=== PATIENT | female | born 1960 ===

== ENCOUNTER 2016-10-24 12:36 | Inpatient (IN) | payer MEDICAID ==
[2016-10-24] MEDS ORDERED: Sodium Chloride 0.9% 1,000 ML IV ONE (13:46)
[2016-10-24] MEDS ORDERED: Sodium Chloride 0.9% 1,000 ML ONE (14:34)
[2016-10-24 14:43] LABS: BASO # 0.1 K/uL (0.0-0.2); BASO % 1.1 % (0.0-2.0); EOS # 0.3 K/uL (0.0-0.7); EOS % 2.6 % (0.0-4.0); HEMOGLOBIN 12.3 g/dL (11.0-16.0); LYMPH # 2.8 K/uL (1.0-4.3); LYMPH % 26.8 % (20.0-40.0); MEAN CELL VOLUME 88.3 fL (81.0-99.0); MEAN CORPUSCULAR HEMOGLOBIN 29.4 pg (27.0-31.0); MEAN CORPUSCULAR HGB CONC 33.4 g/dL (33.0-37.0); MONO # 0.6 K/uL (0.0-0.8); MONO % 6.2 % (0.0-10.0); NEUT # 6.6 K/uL (1.8-7.0); NEUT % 63.3 % (50.0-75.0); NRBC % 0.1 % (0.0-2.0); RBC 4.16 Mil/uL (3.80-5.20); RED CELL DISTRIBUTION WIDTH 13.6 % (11.5-14.5); WHITE BLOOD COUNT 10.5 K/uL (4.8-10.8)
[2016-10-24 14:51] LABS: ALBUMIN 3.6 g/dL (3.5-5.0)
[2016-10-24 14:53] LABS: AST/SGOT 34 U/L (14-36); GFR AFRICAN-AMERICAN > 60; GFR NON-AFRICAN AMERICAN > 60
[2016-10-24 14:54] LABS: ALT/SGPT 44 U/L (9-52); BLOOD UREA NITROGEN 15 mg/dL (7-17); CALCIUM 7.6 mg/dl (8.6-10.4)
--- NOTE | 2016-10-24 15:37 | C.PDOC ---
History Of Present Illness 55 y/o female presents to the ED for evaluation of "bump" to left arm. Patient states she had blood drawn out on 10/15/16 from the left antecubital area, and states when she took the bandage off, she noticed redness to the area. Pt states that she saw her PMD on 10/21/16, was given prescription of antibiotics. States she saw her PMD again today, who instructed her to report to an ED for further evaluation. Otherwise, denies any fever, change in sensation, or trauma. Time Seen by Provider: 10/24/16 12:59 Chief Complaint (Nursing): Abnormal Skin Integrity History Per: Patient History/Exam Limitations: no limitations Onset/Duration Of Symptoms: Days Current Symptoms Are (Timing): Still Present Location Of Injury: Left: Arm Quality Of Symptoms: denies: Itching, Swollen Recent travel outside of the [place]: No Additional History Per: Patient Past Medical History Reviewed: Historical Data, Nursing Documentation, Vital Signs Vital Signs: Last Vital Signs Temp 97.5 F L 10/24/16 17:00 Pulse 55 L 10/24/16 17:00 Resp 20 10/24/16 17:00 BP 132/68 10/24/16 17:00 Pulse Ox 96 10/24/16 18:40 - Medical History PMH: Hypercholesterolemia Surgical History: Cholecystectomy Family History: States: Unknown Family Hx - Social History Hx Alcohol Use: No Hx Substance Use: No - Immunization History Hx Tetanus Toxoid Vaccination: No Hx Influenza Vaccination: No Review Of Systems Except As Marked, All Systems Reviewed And Found Negative. Constitutional: Negative for: Fever, Chills Musculoskeletal: Negative for: Arm Pain Skin: Positive for: Other ("bump" to left arm) Neurological: Negative for: Weakness, Numbness Physical Exam - Physical Exam Appears: Non-toxic, No Acute Distress Skin: Warm, Dry, Other (20cm x 10cm area of open wound to left antecubital area with drainage and surrounding induration) Head: Atraumatic, Normacephalic Eye(s): bilateral: Normal Inspection Nose: Normal Oral Mucosa: Moist Neck: Normal ROM, Supple Cardiovascular: Rhythm Regular, No Murmur Respiratory: Normal Breath Sounds, No Rales, No Rhonchi, No Wheezing Extremity: Normal ROM, No Tenderness, Capillary Refill (< 2 sec.), No Deformity , No Swelling Pulses: Left Radial: Normal, Right Radial: Normal Neurological/Psych: Oriented x3, Normal Speech, Normal Motor, Normal Sensation ED Course And Treatment - Laboratory Results Result Diagrams: 10/24/16 14:38 10/24/16 14:38 O2 Sat by Pulse Oximetry: 96 (RA) Pulse Ox Interpretation: Normal Progress Note: Blood work ordered and reviewed. Patient was given Cleocin, and IV fluids. Case discussed with Dr. Peñaloza who requested hospital admission. Spoke with Dr. Carmen who agreed upon admission. 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 - Scribe Statement The provider has reviewed the documentation as recorded by the Scribe James Muller All medical record entries made by the Edwardibyanet were at my direction and personally dictated by me. I have reviewed the chart and agree that the record accurately reflects my personal performance of the history, physical exam, medical decision making, and the department course for this patient. I have also personally directed, reviewed, and agree with the discharge instructions and disposition.
[2016-10-24 16:36] VITALS: RESP 20
--- NOTE | 2016-10-24 18:40 | CP.PCM.CON ---
History of Present Illness - History of Present Illness History of Present Illness: SURGERY CONSULT NOTE FOR DR. CRAWFORD 55F with left arm AC cellulitis and wound. Patient reports associated pain and swelling to the same area. Symptoms began 6 days ago shortly after patient had blood drawn near that area. Surgery was consulted to evaluate the site. Patient notes redness was originally spread to the entire forearm but has gotten significantly better after the site was drained by her primary physician on Friday. Pt stated increased pain in the arm today and was told to come to hospital by PMD. Pt denies fever, chills, nausea, vomiting, or weakness in the affected arm. PMH: HLD, DM, varicose veins treated with sclerotherapy of the legs PSH: cholecystectomy; delivery x2 Social: Denies alcohol, tobacco, or illicit drug use Allergies: NKA Past Patient History - Past Social History Smoking Status: Never Smoked - CARDIAC Hx Hypercholesterolemia: Yes - ENDOCRINE/METABOLIC Hx Diabetes Mellitus Type 2: Yes - PSYCHIATRIC Hx Substance Use: No - SURGICAL HISTORY Hx Cholecystectomy: Yes - ANESTHESIA Hx Anesthesia: No Hx Anesthesia Reactions: No Meds Allergies/Adverse Reactions: Allergies Allergy/AdvReac Type Severity Reaction Status Date / Time No Known Allergies Allergy Verified 10/24/16 13:00 - Medications Medications: Current Medications Calcium/Vitamin D (Oyster Shell Calcium/Vitamin D 500 Mg-200 Iu) 1 tab PO BID [facility] Enoxaparin Sodium (Lovenox) 40 mg SC DAILY [facility] Famotidine (Pepcid) 20 mg PO DAILY [facility] Vancomycin/Sodium Chloride (Vancocin) 1 gm in 200 mls @ 133 mls/hr IVPB Q12H [facility] Stop: 10/29/16 19:01 Ceftriaxone Sodium 1 gm/ (Sodium Chloride) 100 mls @ 100 mls/hr IVPB Q24H [facility] Insulin Aspart (Novolog) 0 unit SC ACHS [facility] PRN Reason: Protocol Raloxifene HCl (Evista) 60 mg PO DAILY [facility] Rosuvastatin Calcium (Crestor) 10 mg PO HS [facility] Physical Exam - Constitutional Appears: Well, Non-toxic, No Acute Distress - Head Exam Head Exam: ATRAUMATIC - Eye Exam Eye Exam: EOMI, PERRL - ENT Exam ENT Exam: Mucous Membranes Moist - Respiratory Exam Respiratory Exam: Clear to Auscultation Bilateral, NORMAL BREATHING PATTERN - Cardiovascular Exam Cardiovascular Exam: REGULAR RHYTHM, +S1, +S2 - GI/Abdominal Exam GI & Abdominal Exam: Soft. absent: Guarding, Rebound, Rigid, Tenderness - Extremities Exam Extremities exam: Negative for: calf tenderness, pedal edema - Neurological Exam Neurological exam: Alert, Oriented x3 - Psychiatric Exam Psychiatric exam: Normal Affect, Normal Mood - Skin Skin Exam: Erythema Additional comments: Draining purulent lesion (2x2 cm) on the left AC fossa that is surrounded by erythema (7x7 cm) Results - Vital Signs Recent Vital Signs: Last Vital Signs Temp 97.5 F L 10/24/16 17:00 Pulse 55 L 10/24/16 17:00 Resp 20 10/24/16 17:00 BP 132/68 10/24/16 17:00 Pulse Ox 96 10/24/16 18:29 - Labs Result Diagrams: 10/24/16 14:38 10/24/16 14:38 Assessment & Plan - Assessment and Plan (Free Text) Assessment: 55F with left AC cellulitis and purulent wound Plan: Pt will receive IV antibiotics Area of erythema marked circumferentially Will continue to monitor progression of erythema and draining wound Further recs discuss with Dr. Fredrick Banks PGY-2
--- NOTE | 2016-10-24 18:42 | CP.PCM.HP ---
<KeltonCricket - Last Filed: 10/24/16 19:40> History of Present Illness - History of Present Illness History of Present Illness: 55 y/o female presents to the ED for evaluation of "bump" to left arm. Patient is a pashto speaking, her daughter is at bedside to translate for her. The patient states that she had blood drawn from her left arm on 10/15/16. Patient noticed that she area had become erythematous once she took off the band aid. Over the next couple of days, the erythema began to spread as the area began to swell. The patient states that she has a painful/itching/burning sensation in her left arm surrounding the infected area. She went to see her PMD on 10/21/16, and was given Cephalexin 500mg PO 4 times daily to take for 7 days. Patient filled prescription next day and brought bottle with her to the hospital today. Patient has 22 pills remaining out of the 28 that were dispensed to her. Patient states she went back to her PMD today who instructed her to come to the ED for further evaluation. Patient states she has no other complaints. Denies f/ c, n/v, d/c, cough, diaphoresis, sob, cp, weakness, dizziness. Patient denies recent travel outside of the [place]. PMH: DM, HLD PSH: Cholecystectomy, Section x2 Family Hx: unremarkable Social Hx: Denies tobacco, alcohol or illicit drug use ALL: NKDA Present on Admission - Present on Admission Any Indicators Present on Admission: No Review of Systems - Review of Systems All systems: reviewed and no additional remarkable complaints except - Constitutional Constitutional: As Per HPI - EENT Eyes: As Per HPI Ears: As Per HPI Nose/Mouth/Throat: As Per HPI - Breasts Breasts: As Per HPI - Cardiovascular Cardiovascular: As Per HPI - Respiratory Respiratory: As Per HPI - Gastrointestinal Gastrointestinal: As Per HPI - Genitourinary Genitourinary: As Per HPI - Reproductive: Female Reproductive:Female: As Per HPI - Menstruation Menstruation: As Per HPI - Musculoskeletal Musculoskeletal: As Per HPI - Integumentary Integumentary: As Per HPI - Neurological Neurological: As Per HPI - Psychiatric Psychiatric: As Per HPI - Endocrine Endocrine: As Per HPI - Hematologic/Lymphatic Hematologic: As Per HPI Past Patient History - Past Social History Smoking Status: Never Smoked - CARDIAC Hx Hypercholesterolemia: Yes - ENDOCRINE/METABOLIC Hx Diabetes Mellitus Type 2: Yes - PSYCHIATRIC Hx Substance Use: No - SURGICAL HISTORY Hx Cholecystectomy: Yes - ANESTHESIA Hx Anesthesia: No Hx Anesthesia Reactions: No Meds Allergies/Adverse Reactions: Allergies Allergy/AdvReac Type Severity Reaction Status Date / Time No Known Allergies Allergy Verified 10/24/16 13:00 Physical Exam - Constitutional Appears: Well, No Acute Distress - Head Exam Head Exam: ATRAUMATIC, NORMOCEPHALIC - ENT Exam ENT Exam: Mucous Membranes Moist - Respiratory Exam Respiratory Exam: Clear to Auscultation Bilateral, NORMAL BREATHING PATTERN. absent: Accessory Muscle Use, Wheezes, Respiratory Distress - Cardiovascular Exam Cardiovascular Exam: REGULAR RHYTHM, +S1, +S2 - GI/Abdominal Exam GI & Abdominal Exam: Normal Bowel Sounds, Soft. absent: Distended, Guarding - Extremities Exam Extremities exam: Positive for: normal inspection. Negative for: calf tenderness Additional comments: Area of erythema with induration on left UE in antecubital fossa. Opening in the center of affected area, draining purlent discharge (2cm x 2cm). Total area approx. 7cm x 7 cm. - Neurological Exam Neurological exam: Alert, Oriented x3 - Psychiatric Exam Psychiatric exam: Normal Affect, Normal Mood - Skin Skin Exam: Dry, Normal Color, Warm Results - Vital Signs Recent Vital Signs: Last Vital Signs Temp 97.5 F L 10/24/16 17:00 Pulse 55 L 10/24/16 17:00 Resp 20 10/24/16 17:00 BP 132/68 10/24/16 17:00 Pulse Ox 96 10/24/16 18:17 - Labs Result Diagrams: 10/24/16 14:38 10/24/16 14:38 Assessment & Plan - Assessment and Plan (Free Text) Plan: Cellulitis Started on 1gm Vanco Q12hr Started on 1gm Rocephin once daily Area of erythema marked circumferentially Will continue to monitor progression of erythema and drainage F/U blood and wound culture Diabetes Hold home metformin Started on Insulin Sliding Scale On diabetic diet HLD Continue home Atorastatin 20 mg PO once daily Prophylactic Care Started Lovenox 40mg SC once daily Started Pepcid 20mg PO once daily Discussed with Dr. Kermit Melara PGY1 - Date & Time Date: 10/24/16 Time: 18:30 <Almas Carmen - Last Filed: 10/25/16 10:10> Results - Vital Signs Recent Vital Signs: Last Vital Signs Temp 98.2 F 10/25/16 08:42 Pulse 48 L 10/25/16 08:42 Resp 20 10/25/16 08:42 BP 102/66 10/25/16 08:42 Pulse Ox 98 10/25/16 08:42 - Labs Result Diagrams: 10/25/16 06:44 10/25/16 06:44 Labs: Laboratory Results - last 24 hr 10/24/16 10/24/16 10/25/16 18:38 21:10 06:44 WBC 9.2 RBC 4.05 Hgb 12.0 Hct 35.9 MCV 88.7 MCH 29.7 MCHC 33.5 RDW 13.4 Plt Count 183 MPV 10.5 Neut % (Auto) 63.4 Lymph % (Auto) 27.8 [place] % (Auto) 6.1 Eos % (Auto) 2.4 Baso % (Auto) 0.3 Neut # 5.8 Lymph # 2.6 [place] # 0.6 Eos # 0.2 Baso # 0.0 Sodium Potassium Chloride Carbon Dioxide Anion Gap BUN Creatinine Est GFR ( Amer) Est GFR (Non-Af Amer) POC Glucose (mg/dL) 104 167 H Random Glucose Calcium Total Bilirubin AST ALT Alkaline Phosphatase Total Protein Albumin Globulin Albumin/Globulin Ratio 10/25/16 10/25/16 06:44 07:03 WBC RBC Hgb Hct MCV MCH MCHC RDW Plt Count MPV Neut % (Auto) Lymph % (Auto) [place] % (Auto) Eos % (Auto) Baso % (Auto) Neut # Lymph # [place] # Eos # Baso # Sodium 139 Potassium 3.9 Chloride 102 Carbon Dioxide 27 Anion Gap 14 BUN 15 Creatinine 0.6 L Est GFR ( Amer) > 60 Est GFR (Non-Af Amer) > 60 POC Glucose (mg/dL) 110 Random Glucose 105 Calcium 7.9 L Total Bilirubin 0.3 AST 28 ALT 40 Alkaline Phosphatase 95 Total Protein 6.4 Albumin 3.3 L Globulin 3.2 Albumin/Globulin Ratio 1.0 Attending/Attestation - Attestation I have personally seen and examined this patient.: Yes I have fully participated in the care of the patient.: Yes I have reviewed all pertinent clinical information: Yes Notes (Text): 10/25/16 10:09 Patient was seen and examined at bedside with the resident We will start the patient on IV antibiotics We'll also request surgery consultation I discussed the plan of care with the resident and agree with the above history and physical and assessment/plan.
[2016-10-24] MEDS: Vancomycin 1 gm/NS 200 ml 1 GM/200 ML BAG IVPB SCH (18:45)
[2016-10-24] MEDS: Calcium-Vit D 500 mg-200 Units Tab UD PO SCH (18:46)
[2016-10-24] MEDS: (Novolog) Insulin Aspart, Recombinant 100 u/ml 10 ml vial SC SCH (21:57)
[2016-10-25] MEDS: Vancomycin 1 gm/NS 200 ml 1 GM/200 ML BAG IVPB SCH ×2 (06:09→19:21)
[2016-10-25 07:06] LABS: BASO % 0.3 % (0.0-2.0); EOS # 0.2 K/uL (0.0-0.7); EOS % 2.4 % (0.0-4.0); LYMPH # 2.6 K/uL (1.0-4.3); LYMPH % 27.8 % (20.0-40.0); MEAN CELL VOLUME 88.7 fL (81.0-99.0); MEAN CORPUSCULAR HEMOGLOBIN 29.7 pg (27.0-31.0); MEAN CORPUSCULAR HGB CONC 33.5 g/dL (33.0-37.0); MEAN PLATELET VOLUME 10.5 fL (7.2-11.7); MONO # 0.6 K/uL (0.0-0.8); MONO % 6.1 % (0.0-10.0); NEUT # 5.8 K/uL (1.8-7.0); NEUT % 63.4 % (50.0-75.0); RBC 4.05 Mil/uL (3.80-5.20); RED CELL DISTRIBUTION WIDTH 13.4 % (11.5-14.5); WHITE BLOOD COUNT 9.2 K/uL (4.8-10.8)
[2016-10-25 07:10] LABS: ALBUMIN 3.3 g/dL (3.5-5.0); ALT/SGPT 40 U/L (9-52); AST/SGOT 28 U/L (14-36); BLOOD UREA NITROGEN 15 mg/dL (7-17); CALCIUM 7.9 mg/dl (8.6-10.4); GFR AFRICAN-AMERICAN > 60; GFR NON-AFRICAN AMERICAN > 60
--- NOTE | 2016-10-25 11:02 | CP.PCM.PN ---
Subjective - Date & Time of Evaluation Date of Evaluation: 10/25/16 Time of Evaluation: 07:00 - Subjective Subjective: GENERAL SURGERY PROGRESS NOTE FOR DR. CRAWFORD Patient seen and examined at bedside. She reports mild pain in the arm that is improved from yesterday. No new drainage. Objective - Vital Signs/Intake and Output Vital Signs (last 24 hours): Temp Pulse Resp BP Pulse Ox 98.2 F 48 L 20 102/66 98 10/25/16 08:42 10/25/16 08:42 10/25/16 08:42 10/25/16 08:42 10/25/16 08:42 Intake and Output: 10/25/16 10/25/16 06:59 18:59 Intake Total 550 200 Balance 550 200 - Medications Medications: Current Medications Calcium/Vitamin D (Oyster Shell Calcium/Vitamin D 500 Mg-200 Iu) 1 tab PO BID [facility] Last Admin: 10/24/16 18:46 Dose: 1 tab Enoxaparin Sodium (Lovenox) 40 mg SC DAILY [facility] Famotidine (Pepcid) 20 mg PO DAILY [facility] Vancomycin/Sodium Chloride (Vancocin) 1 gm in 200 mls @ 133 mls/hr IVPB Q12H [facility] Stop: 10/29/16 19:01 Last Admin: 10/25/16 06:09 Dose: 133 mls/hr Ceftriaxone Sodium 1 gm/ (Sodium Chloride) 100 mls @ 100 mls/hr IVPB Q24H [facility] Last Admin: 10/24/16 21:04 Dose: 100 mls/hr Insulin Aspart (Novolog) 0 unit SC ACHS [facility] PRN Reason: Protocol Last Admin: 10/24/16 21:57 Dose: Not Given Raloxifene HCl (Evista) 60 mg PO DAILY [facility] Rosuvastatin Calcium (Crestor) 10 mg PO HS [facility] Last Admin: 10/24/16 21:04 Dose: 10 mg - Labs Labs: 10/25/16 06:44 10/25/16 06:44 - Constitutional Appears: Non-toxic, No Acute Distress - Head Exam Head Exam: ATRAUMATIC, NORMAL INSPECTION - Eye Exam Eye Exam: EOMI, Normal appearance - Respiratory Exam Respiratory Exam: NORMAL BREATHING PATTERN. absent: Respiratory Distress - Cardiovascular Exam Cardiovascular Exam: +S1, +S2 - Neurological Exam Neurological Exam: Alert, Awake, Oriented x3 - Psychiatric Exam Psychiatric exam: Normal Affect, Normal Mood - Skin Skin Exam: Normal Color, Warm Additional comments: Left AC fossa: 2x2cm lesion with dried purulent material. No drainage able to be expressed. Mild surrounding induration. Erythema improved compared to yesterday. Assessment and Plan - Assessment and Plan (Free Text) Assessment: 55yo F with left AC abscess - Abscess already opened, no drainage was able to be expressed - Continue ABx - Will continue to monitor - No general surgery intervention necessary at this time - Discussed plan with Dr. Fredrick Farrell PGY-3
[2016-10-25] MEDS: Enoxaparin 40 mg Syringe SC SCH (11:06)
[2016-10-25] MEDS: Calcium-Vit D 500 mg-200 Units Tab UD PO SCH ×2 (11:07→17:37)
[2016-10-25] MEDS: (Novolog) Insulin Aspart, Recombinant 100 u/ml 10 ml vial SC SCH ×4 (11:07→21:15)
--- NOTE | 2016-10-25 13:02 | CP.PCM.PN ---
<Gee Kinga - Last Filed: 10/25/16 12:56> Subjective - Date & Time of Evaluation Date of Evaluation: 10/25/16 Time of Evaluation: 07:00 - Subjective Subjective: Medicine Note for Dr. Carmen Patient was seen and examined at bedside. Patient reports she has mild pain at the left arm site, but does not require pain medications. Denied fever, chills, headache, chest pain, abdominal pain, n/v/d/c, or urinary symptoms. Objective - Vital Signs/Intake and Output Vital Signs (last 24 hours): Temp Pulse Resp BP Pulse Ox 98.2 F 48 L 20 102/66 98 10/25/16 08:42 10/25/16 08:42 10/25/16 08:42 10/25/16 08:42 10/25/16 08:42 Intake and Output: 10/25/16 10/25/16 06:59 18:59 Intake Total 550 200 Balance 550 200 - Medications Medications: Current Medications Calcium/Vitamin D (Oyster Shell Calcium/Vitamin D 500 Mg-200 Iu) 1 tab PO BID [facility] Last Admin: 10/25/16 11:07 Dose: 1 tab Enoxaparin Sodium (Lovenox) 40 mg SC DAILY [facility] Last Admin: 10/25/16 11:06 Dose: 40 mg Famotidine (Pepcid) 20 mg PO DAILY [facility] Last Admin: 10/25/16 11:06 Dose: 20 mg Vancomycin/Sodium Chloride (Vancocin) 1 gm in 200 mls @ 133 mls/hr IVPB Q12H [facility] Stop: 10/29/16 19:01 Last Admin: 10/25/16 06:09 Dose: 133 mls/hr Ceftriaxone Sodium 1 gm/ (Sodium Chloride) 100 mls @ 100 mls/hr IVPB Q24H [facility] Last Admin: 10/24/16 21:04 Dose: 100 mls/hr Insulin Aspart (Novolog) 0 unit SC ACHS [facility] PRN Reason: Protocol Last Admin: 10/25/16 12:50 Dose: Not Given Raloxifene HCl (Evista) 60 mg PO DAILY [facility] Last Admin: 10/25/16 11:26 Dose: 60 mg Rosuvastatin Calcium (Crestor) 10 mg PO HS [facility] Last Admin: 10/24/16 21:04 Dose: 10 mg - Labs Labs: 10/25/16 06:44 10/25/16 06:44 - Constitutional Appears: No Acute Distress - Head Exam Head Exam: NORMAL INSPECTION, NORMOCEPHALIC - Eye Exam Eye Exam: EOMI, Normal appearance, PERRL Pupil Exam: NORMAL ACCOMODATION - ENT Exam ENT Exam: Mucous Membranes Moist - Respiratory Exam Respiratory Exam: Clear to Ausculation Bilateral, NORMAL BREATHING PATTERN. absent: Decreased Breath Sounds, Wheezes - Cardiovascular Exam Cardiovascular Exam: REGULAR RHYTHM, RRR, +S1, +S2 - GI/Abdominal Exam GI & Abdominal Exam: Soft, Normal Bowel Sounds. absent: Distended, Tenderness - Extremities Exam Extremities Exam: Normal Inspection. absent: Pedal Edema, Tenderness - Neurological Exam Neurological Exam: Alert, Awake, Oriented x3 - Skin Skin Exam: Dry, Intact, Normal Color, Warm Assessment and Plan - Assessment and Plan (Free Text) Plan: Left Arm Cellulitis * Started on Vanco Q12hr * Started on Rocephin 1gm IVP daily * Will continue to monitor progression of erythema and drainage * Surgery consulted- Dr. Alcala- help appreciated * S/P bedside I&D, packing in place, changed as per surgery * F/U blood and wound culture Diabetes * Accuchecks * Hold home metformin * Started on Insulin Sliding Scale * On diabetic diet * F/U HgA1C HLD * Rosuvastatin 10 mg PO once daily Osteoporosis * Continued Evista 60mg PO daily, Calcium/ Vit D Prophylactic Measures * DVT PPX: Started Lovenox 40mg SC daily * GI PPX: Started Pepcid 20mg PO daily [facility] Fernando Velazquez DO, PGY-1 <Almas Carmen M - Last Filed: 10/25/16 17:55> Objective - Vital Signs/Intake and Output Vital Signs (last 24 hours): Temp Pulse Resp BP Pulse Ox 97.9 F 51 L 20 110/63 95 10/25/16 16:00 10/25/16 16:00 10/25/16 16:00 10/25/16 16:00 10/25/16 16:00 Intake and Output: 10/25/16 10/25/16 06:59 18:59 Intake Total 550 200 Balance 550 200 - Medications Medications: Current Medications Calcium/Vitamin D (Oyster Shell Calcium/Vitamin D 500 Mg-200 Iu) 1 tab PO BID [facility] Last Admin: 10/25/16 17:37 Dose: 1 tab Enoxaparin Sodium (Lovenox) 40 mg SC DAILY [facility] Last Admin: 10/25/16 11:06 Dose: 40 mg Famotidine (Pepcid) 20 mg PO DAILY [facility] Last Admin: 10/25/16 11:06 Dose: 20 mg Vancomycin/Sodium Chloride (Vancocin) 1 gm in 200 mls @ 133 mls/hr IVPB Q12H [facility] Stop: 10/29/16 19:01 Last Admin: 10/25/16 06:09 Dose: 133 mls/hr Ceftriaxone Sodium 1 gm/ (Sodium Chloride) 100 mls @ 100 mls/hr IVPB Q24H [facility] Last Admin: 10/24/16 21:04 Dose: 100 mls/hr Insulin Aspart (Novolog) 0 unit SC ACHS [facility] PRN Reason: Protocol Last Admin: 10/25/16 16:51 Dose: Not Given Raloxifene HCl (Evista) 60 mg PO DAILY [facility] Last Admin: 10/25/16 11:26 Dose: 60 mg Rosuvastatin Calcium (Crestor) 10 mg PO HS [facility] Last Admin: 10/24/16 21:04 Dose: 10 mg - Labs Labs: 10/25/16 06:44 10/25/16 06:44 Attending/Attestation - Attestation I have personally seen and examined this patient.: Yes I have fully participated in the care of the patient.: Yes I have reviewed all pertinent clinical information, including history, physical exam and plan: Yes Notes (Text): 10/25/16 17:54 Patient was seen and examined at bedside with the resident Patient is status post IND by surgery Patient is on antibiotics. Currently on Rocephin and vancomycin Patient is clinically improving Continue current management I discussed the plan of care with the resident and agree with the history and physical and assessment/plan recommended above.
--- NOTE | 2016-10-26 02:17 | CP.PCM.PN ---
<Lm Sanchez - Last Filed: 10/26/16 02:15> Subjective - Date & Time of Evaluation Date of Evaluation: 10/26/16 Time of Evaluation: 02:15 - Subjective Subjective: PGY-[address] Carmen HPI: Patient seen and examined at bedside. Doing well. Laying comfortable in bed. Mild pain around I/D site. No other complaints at this time. Denies N/V/F/ Chills/CP/SOB. Objective - Vital Signs/Intake and Output Vital Signs (last 24 hours): Temp Pulse Resp BP Pulse Ox 98.2 F 58 L 20 113/66 96 10/25/16 23:57 10/25/16 23:57 10/25/16 23:57 10/25/16 23:57 10/25/16 23:57 Intake and Output: 10/25/16 10/26/16 18:59 06:59 Intake Total 200 Balance 200 - Medications Medications: Current Medications Calcium/Vitamin D (Oyster Shell Calcium/Vitamin D 500 Mg-200 Iu) 1 tab PO BID [facility] Last Admin: 10/25/16 17:37 Dose: 1 tab Enoxaparin Sodium (Lovenox) 40 mg SC DAILY [facility] Last Admin: 10/25/16 11:06 Dose: 40 mg Famotidine (Pepcid) 20 mg PO DAILY [facility] Last Admin: 10/25/16 11:06 Dose: 20 mg Vancomycin/Sodium Chloride (Vancocin) 1 gm in 200 mls @ 133 mls/hr IVPB Q12H [facility] Stop: 10/29/16 19:01 Last Admin: 10/25/16 19:21 Dose: 133 mls/hr Ceftriaxone Sodium 1 gm/ (Sodium Chloride) 100 mls @ 100 mls/hr IVPB Q24H [facility] Last Admin: 10/25/16 21:12 Dose: 100 mls/hr Insulin Aspart (Novolog) 0 unit SC ACHS [facility] PRN Reason: Protocol Last Admin: 10/25/16 21:15 Dose: Not Given Raloxifene HCl (Evista) 60 mg PO DAILY [facility] Last Admin: 10/25/16 11:26 Dose: 60 mg Rosuvastatin Calcium (Crestor) 10 mg PO HS [facility] Last Admin: 10/25/16 21:14 Dose: 10 mg - Labs Labs: 10/25/16 06:44 10/25/16 06:44 - Constitutional Appears: Well, Non-toxic, No Acute Distress - Head Exam Head Exam: ATRAUMATIC, NORMAL INSPECTION - Eye Exam Eye Exam: EOMI. absent: Conjunctival injection, Periorbital swelling, Periorbital tenderness Pupil Exam: absent: Fixed, Irregular, Miosis, Mydriatic - ENT Exam ENT Exam: Mucous Membranes Moist, Normal Exam. absent: Mucous Membranes Dry - Respiratory Exam Respiratory Exam: Clear to Ausculation Bilateral, NORMAL BREATHING PATTERN. absent: Decreased Breath Sounds, Rales, Rhonchi, Wheezes, Respiratory Distress, Stridor - Cardiovascular Exam Cardiovascular Exam: REGULAR RHYTHM, RRR. absent: Bradycardia, Tachycardia, Diastolic murmur, Gallop, JVD, Murmur - GI/Abdominal Exam GI & Abdominal Exam: Soft, Normal Bowel Sounds. absent: Bruit, Distended, Firm , Guarding, Rigid, Tenderness, Diminished Bowel Sounds, Hernia, Hyperactive Bowel Sounds, Hypoactive Bowel Sounds, Organomegaly, Pulsatile Mass, Rebound - Extremities Exam Additional comments: s/p I/D. No signs of infection - Neurological Exam Neurological Exam: Alert, Awake, Oriented x3 - Skin Skin Exam: Dry, Normal Color, Warm Assessment and Plan - Assessment and Plan (Free Text) Assessment: Left Arm Cellulitis * Started on Vanco Q12hr * Started on Rocephin 1gm IVP daily * Will continue to monitor progression of erythema and drainage * Surgery consulted- Dr. Alcala- help appreciated * S/P bedside I&D, packing in place, changed as per surgery * F/U blood and wound culture Diabetes * Accuchecks * Hold home metformin * Started on Insulin Sliding Scale * On diabetic diet * (10/25) HgA1C - 6.2 HLD * Rosuvastatin 10 mg PO once daily Osteoporosis * Continued Evista 60mg PO daily, Calcium/ Vit D Prophylactic Measures * DVT PPX: Started Lovenox 40mg SC daily * GI PPX: Started Pepcid 20mg PO daily <Almas Carmen - Last Filed: 10/26/16 18:43> Objective - Vital Signs/Intake and Output Vital Signs (last 24 hours): Temp Pulse Resp BP Pulse Ox 98.2 F 78 20 105/62 97 10/26/16 16:13 10/26/16 16:13 10/26/16 16:13 10/26/16 16:13 10/26/16 16:13 Intake and Output: 10/26/16 10/26/16 06:59 18:59 Intake Total 200 Balance 200 - Medications Medications: Current Medications Calcium/Vitamin D (Oyster Shell Calcium/Vitamin D 500 Mg-200 Iu) 1 tab PO BID [facility] Last Admin: 10/26/16 18:25 Dose: 1 tab Enoxaparin Sodium (Lovenox) 40 mg SC DAILY [facility] Last Admin: 10/26/16 09:59 Dose: 40 mg Famotidine (Pepcid) 20 mg PO DAILY [facility] Last Admin: 10/26/16 09:59 Dose: 20 mg Vancomycin/Sodium Chloride (Vancocin) 1 gm in 200 mls @ 133 mls/hr IVPB Q12H [facility] Stop: 10/29/16 19:01 Last Admin: 10/26/16 06:05 Dose: 133 mls/hr Ceftriaxone Sodium 1 gm/ (Sodium Chloride) 100 mls @ 100 mls/hr IVPB Q24H [facility] Last Admin: 10/25/16 21:12 Dose: 100 mls/hr Insulin Aspart (Novolog) 0 unit SC [facility] PRN Reason: Protocol Last Admin: 10/26/16 16:30 Dose: Not Given Raloxifene HCl (Evista) 60 mg PO DAILY [facility] Last Admin: 10/26/16 10:03 Dose: 60 mg Rosuvastatin Calcium (Crestor) 10 mg PO HS [facility] Last Admin: 10/25/16 21:14 Dose: 10 mg - Labs Labs: 10/26/16 07:29 10/26/16 07:29 Attending/Attestation - Attestation I have personally seen and examined this patient.: Yes I have fully participated in the care of the patient.: Yes I have reviewed all pertinent clinical information, including history, physical exam and plan: Yes Notes (Text): 10/26/16 18:42 Patient was seen and examined at bedside with the resident Patient is status post incision and drainage of the left from abscess. Packing of the wound done by surgery today We will continue IV antibiotics I discussed the plan of care with the resident and agree with the assessment and plan recommended above.
[2016-10-26] MEDS: Vancomycin 1 gm/NS 200 ml 1 GM/200 ML BAG IVPB SCH ×2 (06:05→19:00)
[2016-10-26] MEDS: (Novolog) Insulin Aspart, Recombinant 100 u/ml 10 ml vial SC SCH ×4 (07:30→21:13)
[2016-10-26 07:33] LABS: BASO # 0.1 K/uL (0.0-0.2); BASO % 0.8 % (0.0-2.0); EOS # 0.2 K/uL (0.0-0.7); EOS % 2.2 % (0.0-4.0); HEMOGLOBIN 12.1 g/dL (11.0-16.0); LYMPH # 2.7 K/uL (1.0-4.3); LYMPH % 31.6 % (20.0-40.0); MEAN CELL VOLUME 87.8 fL (81.0-99.0); MEAN CORPUSCULAR HEMOGLOBIN 29.7 pg (27.0-31.0); MEAN CORPUSCULAR HGB CONC 33.8 g/dL (33.0-37.0); MEAN PLATELET VOLUME 10.1 fL (7.2-11.7); MONO # 0.5 K/uL (0.0-0.8); MONO % 5.9 % (0.0-10.0); NEUT # 5.1 K/uL (1.8-7.0); NEUT % 59.5 % (50.0-75.0); RBC 4.06 Mil/uL (3.80-5.20); RED CELL DISTRIBUTION WIDTH 13.2 % (11.5-14.5); WHITE BLOOD COUNT 8.5 K/uL (4.8-10.8)
[2016-10-26 07:41] LABS: ALBUMIN 3.2 g/dL (3.5-5.0)
[2016-10-26 07:44] LABS: ALT/SGPT 46 U/L (9-52); AST/SGOT 30 U/L (14-36); BLOOD UREA NITROGEN 16 mg/dL (7-17); GFR AFRICAN-AMERICAN > 60; GFR NON-AFRICAN AMERICAN > 60
[2016-10-26 07:55] LABS: ALB/GLOB RATIO 0.9 (1.0-2.1)
--- NOTE | 2016-10-26 09:12 | CP.PCM.PN ---
Subjective - Date & Time of Evaluation Date of Evaluation: 10/26/16 Time of Evaluation: 07:25 - Subjective Subjective: Pt S&E. No complaints. Erythema improved, no active drainage from site. Forearm dressing changed, c/d/i. Radial pulses intact. Objective - Vital Signs/Intake and Output Vital Signs (last 24 hours): Temp Pulse Resp BP Pulse Ox 98 F 60 20 110/56 L 97 10/26/16 07:55 10/26/16 07:55 10/26/16 07:55 10/26/16 07:55 10/26/16 07:55 Intake and Output: 10/26/16 10/26/16 06:59 18:59 Intake Total 200 Balance 200 - Medications Medications: Current Medications Calcium/Vitamin D (Oyster Shell Calcium/Vitamin D 500 Mg-200 Iu) 1 tab PO BID [facility] Last Admin: 10/25/16 17:37 Dose: 1 tab Enoxaparin Sodium (Lovenox) 40 mg SC DAILY [facility] Last Admin: 10/25/16 11:06 Dose: 40 mg Famotidine (Pepcid) 20 mg PO DAILY [facility] Last Admin: 10/25/16 11:06 Dose: 20 mg Vancomycin/Sodium Chloride (Vancocin) 1 gm in 200 mls @ 133 mls/hr IVPB Q12H [facility] Stop: 10/29/16 19:01 Last Admin: 10/26/16 06:05 Dose: 133 mls/hr Ceftriaxone Sodium 1 gm/ (Sodium Chloride) 100 mls @ 100 mls/hr IVPB Q24H [facility] Last Admin: 10/25/16 21:12 Dose: 100 mls/hr Insulin Aspart (Novolog) 0 unit SC ACHS [facility] PRN Reason: Protocol Last Admin: 10/25/16 21:15 Dose: Not Given Raloxifene HCl (Evista) 60 mg PO DAILY [facility] Last Admin: 10/25/16 11:26 Dose: 60 mg Rosuvastatin Calcium (Crestor) 10 mg PO HS [facility] Last Admin: 10/25/16 21:14 Dose: 10 mg - Labs Labs: 10/26/16 07:29 10/26/16 07:29 - Constitutional Appears: No Acute Distress - Head Exam Head Exam: NORMOCEPHALIC - Eye Exam Eye Exam: Normal appearance - ENT Exam ENT Exam: Mucous Membranes Moist - Respiratory Exam Respiratory Exam: NORMAL BREATHING PATTERN - Cardiovascular Exam Cardiovascular Exam: +S1, +S2 - GI/Abdominal Exam GI & Abdominal Exam: Soft - Neurological Exam Neurological Exam: Alert, Awake, Oriented x3 - Psychiatric Exam Psychiatric exam: Normal Mood - Skin Skin Exam: Normal Color, Warm Assessment and Plan - Assessment and Plan (Free Text) Assessment: 55F w/ L arm antecubital cellulitis -Infected region appears to be improving -C/w Abx -No acute surgical intervention necessary at this present time -Medical management as per primary team -Daily dressing changes -Further recs per Dr. Fredrick Joyce PGY-2
[2016-10-26] MEDS: Calcium-Vit D 500 mg-200 Units Tab UD PO SCH ×2 (09:59→18:25)
[2016-10-26] MEDS: Enoxaparin 40 mg Syringe SC SCH (09:59)
[2016-10-27] MEDS: Vancomycin 1 gm/NS 200 ml 1 GM/200 ML BAG IVPB SCH ×2 (06:07→19:00)
--- NOTE | 2016-10-27 07:31 | CP.PCM.PN ---
<Lm Sanchez - Last Filed: 10/27/16 07:25> Subjective - Date & Time of Evaluation Date of Evaluation: 10/27/16 Time of Evaluation: 07:25 - Subjective Subjective: PGY-[address] Carmen HPI: Patient seen and examined at bedside. Doing well with no complaints at this time. Denies F/N/V/Chills/D. Objective - Vital Signs/Intake and Output Vital Signs (last 24 hours): Temp Pulse Resp BP Pulse Ox 98.4 F 60 20 112/58 L 97 10/27/16 00:43 10/27/16 00:43 10/27/16 00:43 10/27/16 00:43 10/27/16 00:43 - Medications Medications: Current Medications Calcium/Vitamin D (Oyster Shell Calcium/Vitamin D 500 Mg-200 Iu) 1 tab PO BID [facility] Last Admin: 10/26/16 18:25 Dose: 1 tab Enoxaparin Sodium (Lovenox) 40 mg SC DAILY [facility] Last Admin: 10/26/16 09:59 Dose: 40 mg Famotidine (Pepcid) 20 mg PO DAILY [facility] Last Admin: 10/26/16 09:59 Dose: 20 mg Vancomycin/Sodium Chloride (Vancocin) 1 gm in 200 mls @ 133 mls/hr IVPB Q12H [facility] Stop: 10/29/16 19:01 Last Admin: 10/27/16 06:07 Dose: 133 mls/hr Ceftriaxone Sodium 1 gm/ (Sodium Chloride) 100 mls @ 100 mls/hr IVPB Q24H [facility] Last Admin: 10/26/16 21:11 Dose: 100 mls/hr Insulin Aspart (Novolog) 0 unit SC ACHS [facility] PRN Reason: Protocol Last Admin: 10/26/16 21:13 Dose: Not Given Raloxifene HCl (Evista) 60 mg PO DAILY [facility] Last Admin: 10/26/16 10:03 Dose: 60 mg Rosuvastatin Calcium (Crestor) 10 mg PO HS [facility] Last Admin: 10/26/16 21:10 Dose: 10 mg - Labs Labs: 10/26/16 07:29 10/26/16 07:29 - Constitutional Appears: Well, Non-toxic, No Acute Distress - Eye Exam Eye Exam: Conjunctival injection, EOMI. absent: Nystagmus, Periorbital swelling , Periorbital tenderness Pupil Exam: absent: Fixed, Irregular - ENT Exam ENT Exam: Mucous Membranes Moist. absent: Mucous Membranes Dry - Respiratory Exam Respiratory Exam: Clear to Ausculation Bilateral, NORMAL BREATHING PATTERN - Cardiovascular Exam Cardiovascular Exam: REGULAR RHYTHM - GI/Abdominal Exam GI & Abdominal Exam: Soft, Normal Bowel Sounds. absent: Tenderness - Neurological Exam Neurological Exam: Alert, Awake, Oriented x3 - Skin Additional comments: L. Arm dressing clean. Being changed by surgery team Assessment and Plan - Assessment and Plan (Free Text) Assessment: Left Arm Cellulitis * Started on Vanco Q12hr * Started on Rocephin 1gm IVP daily * Will continue to monitor progression of erythema and drainage * Surgery consulted- Dr. Alcala- help appreciated * S/P bedside I&D, packing in place, changed as per surgery * Wound culture Gram + cocci Diabetes * Accuchecks * Hold home metformin * Started on Insulin Sliding Scale * On diabetic diet * (10/25) HgA1C - 6.2 HLD * Rosuvastatin 10 mg PO once daily Osteoporosis * Continued Evista 60mg PO daily, Calcium/ Vit D Prophylactic Measures * DVT PPX: Started Lovenox 40mg SC daily * GI PPX: Started Pepcid 20mg PO daily <Almas Carmen - Last Filed: 10/27/16 14:50> Objective - Vital Signs/Intake and Output Vital Signs (last 24 hours): Temp Pulse Resp BP Pulse Ox 97.9 F 49 L 20 116/53 L 96 10/27/16 08:45 10/27/16 08:45 10/27/16 08:45 10/27/16 08:45 10/27/16 08:45 - Medications Medications: Current Medications Calcium/Vitamin D (Oyster Shell Calcium/Vitamin D 500 Mg-200 Iu) 1 tab PO BID [facility] Last Admin: 10/27/16 09:44 Dose: 1 tab Enoxaparin Sodium (Lovenox) 40 mg SC DAILY [facility] Last Admin: 10/27/16 12:07 Dose: 40 mg Famotidine (Pepcid) 20 mg PO DAILY [facility] Last Admin: 10/27/16 09:44 Dose: 20 mg Vancomycin/Sodium Chloride (Vancocin) 1 gm in 200 mls @ 133 mls/hr IVPB Q12H [facility] Stop: 10/29/16 19:01 Last Admin: 10/27/16 06:07 Dose: 133 mls/hr Ceftriaxone Sodium 1 gm/ (Sodium Chloride) 100 mls @ 100 mls/hr IVPB Q24H [facility] Last Admin: 10/26/16 21:11 Dose: 100 mls/hr Insulin Aspart (Novolog) 0 unit SC ACHS [facility] PRN Reason: Protocol Last Admin: 10/27/16 12:08 Dose: Not Given Raloxifene HCl (Evista) 60 mg PO DAILY [facility] Last Admin: 10/27/16 09:44 Dose: 60 mg Rosuvastatin Calcium (Crestor) 10 mg PO HS [facility] Last Admin: 10/26/16 21:10 Dose: 10 mg - Labs Labs: 10/27/16 07:15 10/27/16 07:15 Attending/Attestation - Attestation I have personally seen and examined this patient.: Yes I have fully participated in the care of the patient.: Yes I have reviewed all pertinent clinical information, including history, physical exam and plan: Yes Notes (Text): 10/27/16 14:49 Patient was seen and examined at bedside with the resident Antecubital cellulitis is improving with IV antibiotics Cultures came positive for MRSA Patient is on vancomycin Surgery evaluation and follow-up seen in appreciated No surgical intervention at this time Discharge planning likely in the next 24 hours on oral antibiotics if the patient is medically stable.
[2016-10-27 07:41] LABS: BASO % 0.4 % (0.0-2.0); EOS # 0.2 K/uL (0.0-0.7); EOS % 2.5 % (0.0-4.0); HEMOGLOBIN 12.3 g/dL (11.0-16.0); LYMPH # 2.5 K/uL (1.0-4.3); LYMPH % 31.7 % (20.0-40.0); MEAN CELL VOLUME 88.3 fL (81.0-99.0); MEAN CORPUSCULAR HEMOGLOBIN 29.6 pg (27.0-31.0); MEAN CORPUSCULAR HGB CONC 33.6 g/dL (33.0-37.0); MEAN PLATELET VOLUME 10.4 fL (7.2-11.7); MONO # 0.5 K/uL (0.0-0.8); MONO % 6.3 % (0.0-10.0); NEUT # 4.7 K/uL (1.8-7.0); NEUT % 59.1 % (50.0-75.0); NRBC % 0.1 % (0.0-2.0); RBC 4.16 Mil/uL (3.80-5.20); WHITE BLOOD COUNT 7.9 K/uL (4.8-10.8)
[2016-10-27 07:51] LABS: ALBUMIN 3.3 g/dL (3.5-5.0)
[2016-10-27 07:54] LABS: AST/SGOT 31 U/L (14-36); GFR AFRICAN-AMERICAN > 60; GFR NON-AFRICAN AMERICAN > 60
[2016-10-27 07:55] LABS: ALB/GLOB RATIO 0.9 (1.0-2.1); ALT/SGPT 46 U/L (9-52); BLOOD UREA NITROGEN 12 mg/dL (7-17)
[2016-10-27 07:56] LABS: CALCIUM 8.1 mg/dl (8.6-10.4)
[2016-10-27] MEDS: (Novolog) Insulin Aspart, Recombinant 100 u/ml 10 ml vial SC SCH ×4 (08:22→21:25)
--- NOTE | 2016-10-27 09:00 | CP.PCM.PN ---
Subjective - Date & Time of Evaluation Date of Evaluation: 10/27/16 Time of Evaluation: 07:00 - Subjective Subjective: GENERAL SURGERY PROGRESS NOTE FOR DR. CRAWFORD Patient seen and examined at bedside. She reports only minimal pain in the arm. She is tolerating diet. Wound cx grew MRSA. Dressing was changed. Small amount of pus seen on bandage. No further drainage able to be expressed. Objective - Vital Signs/Intake and Output Vital Signs (last 24 hours): Temp Pulse Resp BP Pulse Ox 97.9 F 49 L 20 116/53 L 96 10/27/16 08:45 10/27/16 08:45 10/27/16 08:45 10/27/16 08:45 10/27/16 08:45 - Medications Medications: Current Medications Calcium/Vitamin D (Oyster Shell Calcium/Vitamin D 500 Mg-200 Iu) 1 tab PO BID [facility] Last Admin: 10/26/16 18:25 Dose: 1 tab Enoxaparin Sodium (Lovenox) 40 mg SC DAILY [facility] Last Admin: 10/26/16 09:59 Dose: 40 mg Famotidine (Pepcid) 20 mg PO DAILY [facility] Last Admin: 10/26/16 09:59 Dose: 20 mg Vancomycin/Sodium Chloride (Vancocin) 1 gm in 200 mls @ 133 mls/hr IVPB Q12H [facility] Stop: 10/29/16 19:01 Last Admin: 10/27/16 06:07 Dose: 133 mls/hr Ceftriaxone Sodium 1 gm/ (Sodium Chloride) 100 mls @ 100 mls/hr IVPB Q24H [facility] Last Admin: 10/26/16 21:11 Dose: 100 mls/hr Insulin Aspart (Novolog) 0 unit SC ACHS [facility] PRN Reason: Protocol Last Admin: 10/27/16 08:22 Dose: Not Given Raloxifene HCl (Evista) 60 mg PO DAILY [facility] Last Admin: 10/26/16 10:03 Dose: 60 mg Rosuvastatin Calcium (Crestor) 10 mg PO HS [facility] Last Admin: 10/26/16 21:10 Dose: 10 mg - Labs Labs: 10/27/16 07:15 10/27/16 07:15 - Constitutional Appears: Non-toxic, No Acute Distress - Eye Exam Eye Exam: EOMI, Normal appearance - Respiratory Exam Respiratory Exam: NORMAL BREATHING PATTERN. absent: Respiratory Distress - Cardiovascular Exam Cardiovascular Exam: +S1, +S2 - Neurological Exam Neurological Exam: Alert, Awake - Psychiatric Exam Psychiatric exam: Normal Affect, Normal Mood - Skin Additional comments: Left AC fossa: 1x2cm lesion with dried purulent material. No drainage able to be expressed. No induration or fluctuance. Only mild surrounding erythema Small amount purulent drainage on dressing which was changed Assessment and Plan - Assessment and Plan (Free Text) Assessment: 55yo F with left AC abscess s/p drainage outpatient - Afebrile, VSS - No leukocytosis - Abscess already opened, no drainage was able to be expressed - Wound cx = MRSA - Blood cx = negative @48 hours - Continue ABx - Will continue to monitor - Dressing changed this morning - No general surgery intervention necessary at this time - Discussed plan with Dr. Fredrick Farrell PGY-3
[2016-10-27] MEDS: Calcium-Vit D 500 mg-200 Units Tab UD PO SCH ×2 (09:44→17:34)
[2016-10-27] MEDS: Enoxaparin 40 mg Syringe SC SCH (12:07)
[2016-10-28] MEDS: Vancomycin 1 gm/NS 200 ml 1 GM/200 ML BAG IVPB SCH (06:08)
[2016-10-28] MEDS: (Novolog) Insulin Aspart, Recombinant 100 u/ml 10 ml vial SC SCH ×2 (08:02→12:13)
[2016-10-28 08:31] VITALS: BP 113/70; PULSE 50; TEMP 97.6; O2SAT 97
--- NOTE | 2016-10-28 08:45 | CP.PCM.PN ---
Subjective - Date & Time of Evaluation Date of Evaluation: 10/28/16 Time of Evaluation: 07:50 - Subjective Subjective: General Surgery Note Patient was seen and examined at beside in no acute distress. Patient was resting comfortably in bed. Patient had no acute issues overnight. Patient denies fever, chills, nausea, vomiting and very minimal pain in the left AC. Patient has no new complaints. Objective - Vital Signs/Intake and Output Vital Signs (last 24 hours): Temp Pulse Resp BP Pulse Ox 97.6 F 50 L 20 113/70 97 10/28/16 08:30 10/28/16 08:30 10/28/16 08:30 10/28/16 08:30 10/28/16 08:30 Intake and Output: 10/28/16 10/28/16 06:59 18:59 Intake Total 600 Balance 600 - Medications Medications: Current Medications Calcium/Vitamin D (Oyster Shell Calcium/Vitamin D 500 Mg-200 Iu) 1 tab PO BID [facility] Last Admin: 10/27/16 17:34 Dose: 1 tab Enoxaparin Sodium (Lovenox) 40 mg SC DAILY [facility] Last Admin: 10/27/16 12:07 Dose: 40 mg Famotidine (Pepcid) 20 mg PO DAILY [facility] Last Admin: 10/27/16 09:44 Dose: 20 mg Vancomycin/Sodium Chloride (Vancocin) 1 gm in 200 mls @ 133 mls/hr IVPB Q12H [facility] Stop: 10/29/16 19:01 Last Admin: 10/28/16 06:08 Dose: 133 mls/hr Ceftriaxone Sodium 1 gm/ (Sodium Chloride) 100 mls @ 100 mls/hr IVPB Q24H [facility] Last Admin: 10/27/16 21:00 Dose: 100 mls/hr Insulin Aspart (Novolog) 0 unit SC ACHS [facility] PRN Reason: Protocol Last Admin: 10/28/16 08:02 Dose: Not Given Raloxifene HCl (Evista) 60 mg PO DAILY [facility] Last Admin: 10/27/16 09:44 Dose: 60 mg Rosuvastatin Calcium (Crestor) 10 mg PO HS [facility] Last Admin: 10/27/16 21:25 Dose: 10 mg - Labs Labs: 10/27/16 07:15 10/27/16 07:15 - Constitutional Appears: Well, No Acute Distress - Head Exam Head Exam: ATRAUMATIC, NORMAL INSPECTION - Eye Exam Eye Exam: EOMI, Normal appearance - Respiratory Exam Respiratory Exam: Clear to Ausculation Bilateral, NORMAL BREATHING PATTERN - Cardiovascular Exam Cardiovascular Exam: REGULAR RHYTHM, +S1, +S2 - Neurological Exam Neurological Exam: Alert, Awake, Oriented x3 - Psychiatric Exam Psychiatric exam: Normal Affect, Normal Mood - Skin Skin Exam: Dry, Normal Color, Warm Additional comments: Left AC fossa: 1x2cm lesion with dried purulent material. No drainage able to be expressed. No induration or fluctuance. Only mild surrounding erythema Assessment and Plan (1) Left arm cellulitis Assessment & Plan: 55yo F with left AC abscess s/p drainage outpatient - Afebrile, - No leukocytosis - No drainage was able to be expressed - Wound cx = MRSA - Blood cx = negative @48 hours - Continue antibiotics as per medicine team - Will continue to monitor - Continue dressing changes - No general surgery intervention necessary at this time - Stable for discharge from surgical standpoint - Discussed plan with Dr. Alcala Status: Acute
[2016-10-28] MEDS: Calcium-Vit D 500 mg-200 Units Tab UD PO SCH (09:56)
[2016-10-28] MEDS: Enoxaparin 40 mg Syringe SC SCH (09:57)
--- NOTE | 2016-10-28 11:54 | CP.PCM.DIS ---
<Yarelis King - Last Filed: 10/28/16 13:01> Provider - Provider Date of Admission: 10/24/16 15:36 Attending physician: Almas Carmen MD Time Spent in preparation of Discharge (in minutes): 55 Hospital Course - Lab Results Lab Results: Micro Results 10/24/16 19:43 Abscess - Arm-Left Gram Stain - Final 10/24/16 19:43 Abscess - Arm-Left Wound Culture - Final Methicillin Resistant S Aureus Most Recent Lab Values WBC 7.9 K/uL (4.8-10.8) 10/27/16 07:15 RBC 4.16 Mil/uL (3.80-5.20) 10/27/16 07:15 Hgb 12.3 g/dL (11.0-16.0) 10/27/16 07:15 Hct 36.7 % (34.0-47.0) 10/27/16 07:15 MCV 88.3 fL (81.0-99.0) 10/27/16 07:15 MCH 29.6 pg (27.0-31.0) 10/27/16 07:15 MCHC 33.6 g/dL (33.0-37.0) 10/27/16 07:15 RDW 13.0 % (11.5-14.5) 10/27/16 07:15 Plt Count 175 K/uL (130-400) 10/27/16 07:15 MPV 10.4 fL (7.2-11.7) 10/27/16 07:15 Neut % (Auto) 59.1 % (50.0-75.0) 10/27/16 07:15 Lymph % (Auto) 31.7 % (20.0-40.0) 10/27/16 07:15 Foster % (Auto) 6.3 % (0.0-10.0) 10/27/16 07:15 Eos % (Auto) 2.5 % (0.0-4.0) 10/27/16 07:15 Baso % (Auto) 0.4 % (0.0-2.0) 10/27/16 07:15 Neut # 4.7 K/uL (1.8-7.0) 10/27/16 07:15 Lymph # 2.5 K/uL (1.0-4.3) 10/27/16 07:15 Foster # 0.5 K/uL (0.0-0.8) 10/27/16 07:15 Eos # 0.2 K/uL (0.0-0.7) 10/27/16 07:15 Baso # 0.0 K/uL (0.0-0.2) 10/27/16 07:15 Sodium 142 mmol/L (132-148) 10/27/16 07:15 Potassium 3.8 mmol/L (3.6-5.2) 10/27/16 07:15 Chloride 102 mmol/L (98-107) 10/27/16 07:15 Carbon Dioxide 28 mmol/L (22-30) 10/27/16 07:15 Anion Gap 17 (10-20) 10/27/16 07:15 BUN 12 mg/dL (7-17) 10/27/16 07:15 Creatinine 0.5 MG/DL (0.7-1.2) L 10/27/16 07:15 Est GFR ( Amer) > 60 10/27/16 07:15 Est GFR (Non-Af Amer) > 60 10/27/16 07:15 POC Glucose (mg/dL) 89 mg/dL (65-110) 10/28/16 11:30 Random Glucose 102 mg/dL (65-105) 10/27/16 07:15 Hemoglobin A1c 6.2 % (4.2-6.5) 10/25/16 13:34 Calcium 8.1 mg/dl (8.6-10.4) L 10/27/16 07:15 Total Bilirubin 0.5 mg/dL (0.2-1.3) 10/27/16 07:15 AST 31 U/L (14-36) 10/27/16 07:15 ALT 46 U/L (9-52) 10/27/16 07:15 Alkaline Phosphatase 98 U/L (38-126) 10/27/16 07:15 Total Protein 6.9 g/dL (6.3-8.3) 10/27/16 07:15 Albumin 3.3 g/dL (3.5-5.0) L 10/27/16 07:15 Globulin 3.5 gm/dL (2.2-3.9) 10/27/16 07:15 Albumin/Globulin Ratio 0.9 (1.0-2.1) L 10/27/16 07:15 - Hospital Course Hospital Course: Upon Admission: 55 y/o female presents to the ED for evaluation of "bump" to left arm. Patient is a niuean speaking, her daughter is at bedside to translate for her. The patient states that she had blood drawn from her left arm on 10/15/16. Patient noticed that she area had become erythematous once she took off the band aid. Over the next couple of days, the erythema began to spread as the area began to swell. The patient states that she has a painful/itching/burning sensation in her left arm surrounding the infected area. She went to see her PMD on 10/21/16, and was given Cephalexin 500mg PO 4 times daily to take for 7 days. Patient filled prescription next day and brought bottle with her to the hospital today. Patient has 22 pills remaining out of the 28 that were dispensed to her. Patient states she went back to her PMD today who instructed her to come to the ED for further evaluation. Patient states she has no other complaints. Denies f/ c, n/v, d/c, cough, diaphoresis, sob, cp, weakness, dizziness. Patient denies recent travel outside of the [place]. PMH: DM, HLD PSH: Cholecystectomy, Section x2 Family Hx: unremarkable Social Hx: Denies tobacco, alcohol or illicit drug use ALL: NKDA Throughout Hospital Course: Patient was admitted for left arm cellulitis. She was evaluated by Surgery, where a bedside I&D was performed and later packed with iodoform. Patient was placed on IV antibiotics. Throughout her admission the swelling was reduced, no more pus was coming out of the wound, and her labwork did not reflect any persistent infection. Patient is to be discharged on oral antibiotics x3 days and ask to follow up with her PMD. This is a brief summary of the patient's admission. Please review EMR for full record. Discharge Exam - Head Exam Head Exam: ATRAUMATIC, NORMAL INSPECTION - Eye Exam Eye Exam: Normal appearance, PERRL Pupil Exam: NORMAL ACCOMODATION - ENT Exam ENT Exam: Mucous Membranes Moist - Respiratory Exam Respiratory Exam: Clear to PA & Lateral, NORMAL BREATHING PATTERN. absent: Decreased Breath Sounds, Rales, Wheezes - Cardiovascular Exam Cardiovascular Exam: REGULAR RHYTHM, RRR, +S1, +S2 - GI/Abdominal Exam GI & Abdominal Exam: Normal Bowel Sounds, Soft. absent: Distended, Tenderness - Rectal Exam Rectal Exam: Deferred - Extremities Exam Extremities exam: normal inspection, pedal pulses present - Neurological Exam Neurological exam: Alert, CN II-XII Intact, Oriented x3 - Psychiatric Exam Psychiatric exam: Normal Affect, Normal Mood - Skin Skin Exam: Dry, Intact, Normal Color, Warm Discharge Plan - Discharge Medications Prescriptions: Clindamycin [Cleocin] 300 mg PO TID #9 cap - Follow Up Plan Condition: STABLE Disposition: HOME/ ROUTINE Instructions: Cellulitis (DC), Cellulitis (GEN) Additional Instructions: Patient is to continue home medications. Patient is to also start taking Clindamycin 300mg by mouth three times a day for 3 days. Patient is to follow up with PMD, if no PMD, patient can follow up with the [facility]. Please, keep the wound clean, dry, patient may shower. Please return to the ED if your symptoms return or worsen. El paciente debe continuar los medicamentos en el hogar. El paciente tambin debe comenzar a thanh Clindamycin 300mg por va oral jill veces al da cody 3 meeks. El paciente debe seguir con PMD, si no hay PMD, el paciente puede hacer un seguimiento con la [facility]. Por favor, mantenga la herida limpia, seca, el paciente puede ducharse. Por favor regrese a la DE si kalen sntomas regresan o empeoran. Referrals: [facility] at [facility] [Outside] <Yobani Hernadez - Last Filed: 10/28/16 13:31> Provider - Provider Date of Admission: 10/24/16 15:36 Attending physician: Yobani Hernadez, DO Hospital Course - Lab Results Lab Results: Micro Results 10/24/16 19:43 Abscess - Arm-Left Gram Stain - Final 10/24/16 19:43 Abscess - Arm-Left Wound Culture - Final Methicillin Resistant S Aureus Most Recent Lab Values WBC 7.9 K/uL (4.8-10.8) 10/27/16 07:15 RBC 4.16 Mil/uL (3.80-5.20) 10/27/16 07:15 Hgb 12.3 g/dL (11.0-16.0) 10/27/16 07:15 Hct 36.7 % (34.0-47.0) 10/27/16 07:15 MCV 88.3 fL (81.0-99.0) 10/27/16 07:15 MCH 29.6 pg (27.0-31.0) 10/27/16 07:15 MCHC 33.6 g/dL (33.0-37.0) 10/27/16 07:15 RDW 13.0 % (11.5-14.5) 10/27/16 07:15 Plt Count 175 K/uL (130-400) 10/27/16 07:15 MPV 10.4 fL (7.2-11.7) 10/27/16 07:15 Neut % (Auto) 59.1 % (50.0-75.0) 10/27/16 07:15 Lymph % (Auto) 31.7 % (20.0-40.0) 10/27/16 07:15 Foster % (Auto) 6.3 % (0.0-10.0) 10/27/16 07:15 Eos % (Auto) 2.5 % (0.0-4.0) 10/27/16 07:15 Baso % (Auto) 0.4 % (0.0-2.0) 10/27/16 07:15 Neut # 4.7 K/uL (1.8-7.0) 10/27/16 07:15 Lymph # 2.5 K/uL (1.0-4.3) 10/27/16 07:15 Foster # 0.5 K/uL (0.0-0.8) 10/27/16 07:15 Eos # 0.2 K/uL (0.0-0.7) 10/27/16 07:15 Baso # 0.0 K/uL (0.0-0.2) 10/27/16 07:15 Sodium 142 mmol/L (132-148) 10/27/16 07:15 Potassium 3.8 mmol/L (3.6-5.2) 10/27/16 07:15 Chloride 102 mmol/L (98-107) 10/27/16 07:15 Carbon Dioxide 28 mmol/L (22-30) 10/27/16 07:15 Anion Gap 17 (10-20) 10/27/16 07:15 BUN 12 mg/dL (7-17) 10/27/16 07:15 Creatinine 0.5 MG/DL (0.7-1.2) L 10/27/16 07:15 Est GFR ( Amer) > 60 10/27/16 07:15 Est GFR (Non-Af Amer) > 60 10/27/16 07:15 POC Glucose (mg/dL) 89 mg/dL (65-110) 10/28/16 11:30 Random Glucose 102 mg/dL (65-105) 10/27/16 07:15 Hemoglobin A1c 6.2 % (4.2-6.5) 10/25/16 13:34 Calcium 8.1 mg/dl (8.6-10.4) L 10/27/16 07:15 Total Bilirubin 0.5 mg/dL (0.2-1.3) 10/27/16 07:15 AST 31 U/L (14-36) 10/27/16 07:15 ALT 46 U/L (9-52) 10/27/16 07:15 Alkaline Phosphatase 98 U/L (38-126) 10/27/16 07:15 Total Protein 6.9 g/dL (6.3-8.3) 10/27/16 07:15 Albumin 3.3 g/dL (3.5-5.0) L 10/27/16 07:15 Globulin 3.5 gm/dL (2.2-3.9) 10/27/16 07:15 Albumin/Globulin Ratio 0.9 (1.0-2.1) L 10/27/16 07:15 Attending/Attestation - Attestation I have personally seen and examined this patient.: Yes I have fully participated in the care of the patient.: Yes I have reviewed all pertinent clinical information, including history, physical exam and plan: Yes Notes (Text): 10/28/16 13:28 Medical attending: Patient was seen and examined by me, agrees the above note by medical care manager. This is my first time meeting patient, I had reviewed the previous notes as well as discussed with the medical residents as well as discuss more extensively with the patient. Family members were present as well the patient was okay with this. As noted previously the patient had some lab work outpatient done and unfortunately the area where the lab work was done developed into a cellulitis/ abscess this required a bedside incision and drainage to be done - the cultures grew out positive for MRSA. Since admission her white blood cell count has decreased substantially, her vital signs are stable she does not have a fever she is tolerating her diet. She's been not under any acute distress. When I saw her today on extraction the area was covered up with tape and 4 x 4 gauze. It is clean dry and almost completely closed on its own. There is no erythema. She is able to bend and extend her wrist as well as elbow is without any pain. The MRSA has been treated for several days now with vancomycin. She's can go home today with oral clindamycin to take several more days as well Thank you very much, Yobani Hernadez
== END 2016-10-28 14:45 | disposition home or self-care (01) | DRG 278 ==
LOC: C.ER 12:36 → C.9E 15:36 → C.3T 16:17
PROVIDERS: ADMIT Hospitalist; ATTEND Hospitalist
DX: L03.114 Cellulitis of left upper limb (principal); B95.62 Methicillin resistant Staphylococcus aureus infection as the cause of diseases classified elsewhere; E11.9 Type 2 diabetes mellitus without complications; E78.5 Hyperlipidemia, unspecified; M81.0 Age-related osteoporosis without current pathological fracture; E78.00 Pure hypercholesterolemia, unspecified; Z79.899 Other long term (current) drug therapy; Z16.39 Resistance to other specified antimicrobial drug